=== PATIENT | female | born 1995 | race Hispanic/Latino ===

== ENCOUNTER 2021-08-16 10:33 | Outpatient (CLI) | payer OTHER ==
[2021-08-17 12:10] LABS: SARS-CoV-2 PCR by NAA Not Detected (NotDetected)
== END 2021-08-16 10:34 | disposition home or self-care (01) ==
LOC: CSHLAB 10:33
PROVIDERS: ATTEND Obstetrics & Gynecology
DX: Z20.822 Contact with and (suspected) exposure to COVID-19 (principal)
CPT/HCPCS: U0003; U0005

== ENCOUNTER 2021-08-20 05:30 | Inpatient (IN) | payer OTHER ==
[2021-08-20] MEDS: Lactated Ringer's 1,000 ML IV SCH ×3 (07:26→13:19)
[2021-08-20 07:43] VITALS: BMI 35.6
[2021-08-20] MEDS ORDERED: ePHEDrine Sulfate 50 MG/10 ML VIAL ONE (08:00)
[2021-08-20] MEDS ORDERED: Ondansetron PF 4 MG/2 ML Vial IVP PRN ×3 (08:02→21:40)
[2021-08-20] MEDS ORDERED: Ibuprofen 800 MG TAB PO PRN (08:02)
[2021-08-20] MEDS ORDERED: hydrALAZINE 20 MG/ML VIAL SLOW IVP PRN ×2 (08:02→21:40)
[2021-08-20] MEDS ORDERED: HYDROcodone/Acetaminophen 5/325 mg Tablet PO PRN ×3 (08:02→21:40)
[2021-08-20] MEDS ORDERED: Promethazine HCl 25 MG/ML VIAL IM PRN ×2 (08:02→11:56)
[2021-08-20] MEDS ORDERED: Butorphanol Tartrate 1 MG/ML VIAL SLOW IVP PRN (08:02)
[2021-08-20] MEDS ORDERED: Lidocaine 1% (PF) 30 ML VIAL SC PRN (08:02)
[2021-08-20] MEDS ORDERED: Penicillin G Potassium 5 MILL.UNITS in Sodium Chloride 0.9% 100 ML IVPB SCH (08:15)
[2021-08-20] MEDS ORDERED: NS w/ Oxytocin 30 units 500 ML IV SCH ×2 (08:15)
[2021-08-20] MEDS ORDERED: NS w/ Oxytocin 30 units 500 ML ONE (08:17)
[2021-08-20] MEDS ORDERED: Penicillin G Potassium 5 MILL.UNITS VIAL ONE (08:17)
[2021-08-20 08:21] LABS: Hemoglobin 9.5 g/dL (12.0-15.5); Mean Corpuscular HGB CONC 31.6 g/dL (32.0-36.0); Mean Corpuscular Hemoglobin 24.7 pg (27.0-33.0); Mean Corpuscular Volume 78.4 fl (81.6-98.3); Mean Platelet Volume 10.4 fl (7.4-10.4); Platelet Count 218 10x3/uL (150-450); RBC Distribution Width 17.5 % (11.5-14.5); Red Blood Cell (RBC) Count 3.84 10x6/uL (3.90-5.03)
[2021-08-20 08:55] LABS: Hep B Surf Ag Non-Reactive S/CO (NonReactive); Syphilis Antibody Nonreactive (Nonreactive); Syphilis Antibody Index 0.02 S/CO (<1.00 Non-Reactive)
[2021-08-20 09:20] LABS: HBSAg Index 0.29 S/CO (0-0.99)
[2021-08-20] MEDS ORDERED: Fentanyl 2 mcg/Bup 0.1% Cadd 100 ML ONE (11:19)
[2021-08-20] MEDS ORDERED: diphenhydrAMINE 50 MG/ML VIAL IVP PRN (11:56)
[2021-08-20] MEDS ORDERED: Hydrocerin (Eucerin) Cream 120 gm Jar TOP PRN (11:56)
[2021-08-20] MEDS ORDERED: Lactated Ringer's 500 ML IV PRN (11:56)
[2021-08-20] MEDS ORDERED: Acetaminophen 325 MG TAB PO PRN (11:56)
[2021-08-20] MEDS ORDERED: Naloxone HCl 0.4 mg/ml Vial IVP PRN ×2 (11:56)
[2021-08-20] MEDS: Penicillin G 2.5 MILL.units 2.5 MILL.UNITS in Premix Bag 1 BAG IVPB SCH ×2 (11:59→15:55)
[2021-08-20] MEDS ORDERED: Communication Order-Pharmacy FS SCH (12:00)
[2021-08-20] MEDS ORDERED: Fentanyl 2 mcg/Bupivacaine 0.1% Cassette 100 ML EPIDURAL SCH (12:00)
[2021-08-20] MEDS: ePHEDrine Sulfate 50 MG/10 ML VIAL SLOW IVP PRN ×2 (12:52→13:35)
[2021-08-20] MEDS ORDERED: diphenhydrAMINE 25 MG CAP PO PRN (21:40)
[2021-08-20] MEDS ORDERED: Preparation H Ointment 28 GM TUBE PR PRN (21:40)
[2021-08-20] MEDS ORDERED: Bisacodyl 10 MG SUPP PR PRN (21:40)
[2021-08-20] MEDS ORDERED: Benzocaine-Menthol 82.5 ML CAN TOP PRN (21:40)
[2021-08-20] MEDS ORDERED: Milk Of Magnesia 30 ML UDCUP PO PRN (21:40)
[2021-08-20] MEDS ORDERED: Boostrix 0.5 ML (Tdap) VIAL IM ONE (21:40)
[2021-08-20] MEDS ORDERED: Lanolin Ointment 7 GM TUBE TOP PRN (21:40)
[2021-08-20] MEDS ORDERED: Docusate 100 MG CAP PO SCH (21:45)
[2021-08-20] MEDS: Ibuprofen 800 MG TAB PO SCH (22:11)
[2021-08-21] MEDS: Ibuprofen 800 MG TAB PO SCH ×3 (05:54→21:27)
[2021-08-21] MEDS: Penicillin G 2.5 MILL.units 2.5 MILL.UNITS in Premix Bag 1 BAG IVPB SCH (08:22)
[2021-08-21] MEDS: Prenatal Vitamin 1 TAB PO SCH (08:25)
[2021-08-21] MEDS: Docusate 100 MG CAP PO SCH ×2 (08:25→21:27)
[2021-08-21] MEDS: Ferrous Sulfate 325 MG TAB PO SCH ×2 (08:25→16:42)
[2021-08-21] MEDS: HYDROcodone/Acetaminophen 5/325 mg Tablet PO PRN (08:33)
[2021-08-22] MEDS: Ibuprofen 800 MG TAB PO SCH ×3 (06:48→21:30)
[2021-08-22] MEDS: Ferrous Sulfate 325 MG TAB PO SCH ×2 (08:40→17:56)
[2021-08-22] MEDS: Docusate 100 MG CAP PO SCH ×2 (08:40→21:30)
[2021-08-22] MEDS: Prenatal Vitamin 1 TAB PO SCH (08:40)
[2021-08-22] MEDS: HYDROcodone/Acetaminophen 5/325 mg Tablet PO PRN (23:57)
[2021-08-23] MEDS: Ibuprofen 800 MG TAB PO SCH ×2 (06:03→14:22)
[2021-08-23] MEDS: HYDROcodone/Acetaminophen 5/325 mg Tablet PO PRN (06:06)
[2021-08-23 07:49] VITALS: BP 117/72; TEMP 97.9
[2021-08-23] MEDS: Ferrous Sulfate 325 MG TAB PO SCH (08:45)
[2021-08-23] MEDS: Prenatal Vitamin 1 TAB PO SCH (08:46)
[2021-08-23] MEDS: Docusate 100 MG CAP PO SCH (08:46)
== END 2021-08-23 15:25 | disposition home or self-care (01) | DRG 807 ==
LOC: CSHLD 06:12 → CSHPED 20:58
PROVIDERS: ADMIT Obstetrics & Gynecology; ATTEND Obstetrics & Gynecology
PROC: 10E0XZZ Delivery of Products of Conception, External Approach (ICD-10-PCS; principal; 2021-08-20)
DX: O76 Abnormality in fetal heart rate and rhythm complicating labor and delivery (principal); Z37.0 Single live birth; Z3A.39 39 weeks gestation of pregnancy; Z20.822 Contact with and (suspected) exposure to COVID-19; O66.0 Obstructed labor due to shoulder dystocia; O99.02 Anemia complicating childbirth; D64.9 Anemia, unspecified
CPT/HCPCS: 51702; 82805; 85027; 86780; 86850; 86900; 86901; 87340; J2540; J2590; J3490; J7120